=== PATIENT | female | born 1985 | race Caucasian/White ===

== ENCOUNTER 2024-06-05 02:40 | Emergency (ER) | payer OTHER ==
[2024-06-05] MEDS: diphenhydrAMINE 50 MG/ML SDV IVPUSH ONE (03:34)
[2024-06-05] MEDS: Prochlorperazine 10 MG/2 ML SDV IVPUSH ONE (03:34)
[2024-06-05] MEDS: Sodium Chloride 0.9% 1,000 ML IV SCH (03:34)
[2024-06-05] MEDS: Haloperidol Lactate 5 MG/ML SDV IVPUSH ONE (04:36)
== END 2024-06-05 05:01 | disposition home or self-care (01) ==
LOC: JP.ED 02:40
DX: G43.909 Migraine, unspecified, not intractable, without status migrainosus (principal); Z88.2 Allergy status to sulfonamides; Z79.899 Other long term (current) drug therapy
CPT/HCPCS: 70450; 96361; 96374; 96375; 99284; J0780; J1200; J1630; J7030